=== PATIENT | male | born 1940 | race Caucasian/White ===

== ENCOUNTER 2021-07-11 20:25 | Emergency (ER) | payer OTHER ==
[2021-07-11 20:59] LABS: BASOPHIL 0.2 % (0-2); EOSINOPHIL 0.1 % (0-7); HCT 37.6 % (42.0-52.0); HGB 12.6 g/dl (13.2-18.0); LYMPHOCYTE 5.2 % (15-48); MCH 29.6 pg (25.0-31.0); MCHC 33.5 g/dL (32.0-36.0); MCV 88.5 fL (78.0-100.0); MONOCYTE 5.8 % (0-12); MPV 10.4 fL (6.0-9.5); NEUTROPHIL 88.1 % (41-80); NRBC 0; PLT 375 K/uL (150-400); RBC 4.25 M/uL (4.70-6.00); RDW 13.4 % (11.5-14.0); WBC 17.2 K/uL (4.0-10.5)
[2021-07-11 21:03] LABS: INR 0.99 (0.9-1.2); PROTHROMBIN TIME 12.5 SECONDS (11.8-13.4)
[2021-07-11 21:13] LABS: ALBUMIN 4.1 g/dL (3.4-5.0); BILIRUBIN - TOTAL 0.3 mg/dL (0.2-1.0); BUN/CREAT RATIO (CALC) 21.9 RATIO; CREATININE 0.96 mg/dL (0.67-1.17); GLOBULIN (CALCULATION) 3.1 g/dL; POTASSIUM 4.5 mmol/L (3.5-5.1); TOTAL PROTEIN 7.2 g/dL (6.4-8.2)
[2021-07-12 01:43] LABS: ALBUMIN 3.6 g/dL (3.4-5.0); BILIRUBIN - TOTAL 0.3 mg/dL (0.2-1.0); BUN/CREAT RATIO (CALC) 21.8 RATIO; CREATININE 0.87 mg/dL (0.67-1.17); GLOBULIN (CALCULATION) 3.4 g/dL; POTASSIUM 4.3 mmol/L (3.5-5.1)
[2021-07-12 02:14] LABS: BILIRUBIN NEGATIVE (NEGATIVE); BLOOD NEGATIVE Ery/uL (NEGATIVE); CLARITY CLEAR (CLEAR); COLOR YELLOW (YELLOW); GLUCOSE (U) TRACE mg/dL (NORMAL); LEUKOCYTES NEGATIVE Leu/uL (NEGATIVE); NITRITE NEGATIVE (NEGATIVE); PROTEIN 1+ mg/dL (NEGATIVE); SPECIFIC GRAVITY 1.015 (1.001-1.030); UROBILINOGEN 0.2 mg/dL (0.2-1.0); pH 7.5 (5.0-9.0)
[2021-07-12 02:21] LABS: BACTERIA TRACE; SQUAMOUS EPITHELIAL CELLS RARE
== END 2021-07-12 04:20 | disposition home or self-care (01) ==
LOC: FER 20:25
PROVIDERS: Emergency Medicine
DX: R07.89 Other chest pain (principal); I10 Essential (primary) hypertension; E11.9 Type 2 diabetes mellitus without complications
CPT/HCPCS: 36415; 71045; 71260; 80053; 81001; 83690; 84484; 85025; 85610; 85730; 93005; J1170; J2405; J3490; Q9967

== ENCOUNTER 2022-06-09 22:35 | Emergency (ER) | payer OTHER ==
[2022-06-10] MEDS ORDERED: NORCO 5-325 TA1 EACH PO (02:18)
== END 2022-06-10 02:59 | disposition home or self-care (01) ==
LOC: FER 22:35
DX: S00.83XA Contusion of other part of head, initial encounter (principal); S50.311A Abrasion of right elbow, initial encounter; M25.551 Pain in right hip; I10 Essential (primary) hypertension; E11.9 Type 2 diabetes mellitus without complications; W01.0XXA Fall on same level from slipping, tripping and stumbling without subsequent striking against object, initial encounter; Y92.009 Unspecified place in unspecified non-institutional (private) residence as the place of occurrence of the external cause
CPT/HCPCS: 70450; 70486; 71250; 72125